=== PATIENT | male | born 1990 | race Caucasian/White ===

== ENCOUNTER 2023-06-29 22:26 | Emergency (ER) | payer OTHER, SELFPAY ==
--- NOTE | 2023-06-29 | ECG_ITS ---
Test Reason : CP Blood Pressure : / mmHG Vent. Rate : 077 BPM Atrial Rate : 077 BPM P-R Int : 142 ms QRS Dur : 100 ms QT Int : 374 ms P-R-T Axes : 017 -04 007 degrees QTc Int : 423 ms Normal sinus rhythm Normal ECG No previous ECGs available Referred By: Generic ED Physician Electronically Signed By:GUY DAS
--- NOTE | ~2023-06-29 | CT_ITS ---
EXAMINATION: CT ABDOMEN AND PELVIS WITH CONTRAST CLINICAL INFORMATION: Rectal bleeding. COMPARISON: None available. TECHNIQUE: Multidetector volumetric images were obtained from the superior aspect of the liver through the pubic symphysis following administration 85 mL of Omnipaque 350 intravenous contrast. Sagittal and coronal reformatted images were obtained on the technologist's workstation. Oral contrast: No This CT examination was performed using dose optimization techniques as appropriate, variously including the following: *Automated exposure control *Adjustment of mA and/or kV according to patient size (this includes techniques or standardized protocols for targeted exams where dose is matched to indication/reason for exam; i.e. extremities or head) *Use of iterative reconstruction technique DLP: 695 mGy-cm FINDINGS: LUNG BASES: The visualized lung bases are unremarkable. LIVER, GALLBLADDER, AND BILIARY TREE: The liver is normal in size, shape, and attenuation. No focal hepatic lesion or biliary ductal dilatation is present. The gallbladder is unremarkable with no evidence of radiopaque gallstones, gallbladder wall thickening, or obvious pericholecystic inflammatory changes. PANCREAS: Unremarkable. SPLEEN: Unremarkable. ADRENAL GLANDS: Unremarkable. KIDNEYS AND URETERS: The kidneys are normal in size, shape, and attenuation. No hydronephrosis, hydroureter, or calculi seen. No perinephric stranding. BLADDER: Unremarkable. GASTROINTESTINAL TRACT: The small and large bowel are unremarkable. The appendix is unremarkable. ABDOMINAL WALL: No significant hernia is appreciated. LYMPH NODES: Normal. VASCULAR: Unremarkable. PELVIC VISCERA: Unremarkable. OSSEOUS STRUCTURES: Unremarkable. CT/CT abdomen pelvis w IV con IMPRESSION: No acute intra-abdominal process. Fleischner guidelines were followed.
[2023-06-29 22:48] VITALS: BP 152/99; PULSE 88; RESP 18; TEMP 36.6; O2SAT 99; BMI 33.2
--- OUTSIDE RECORDS SUMMARY | 2023-06-29 23:33 | XMS_ITS | Continuity of Care Document ---
Author Name Unknown Organization [facility] ter Address [address] [place] [id number] Care Team Providers Care Trailer Technician Name Role Phone Not on Staff, PCP Primary Care Physician Unavail able [place] [facility] [place]/[address] [address]- Discharge Disposition: A-D/C Home Attending Physician: Gita Bliss MD Admitting Physician: Gita Bliss MD Referring Physician: Not on Staff, Referring MD Allergies, Adverse Reactions, Alerts Substance Reaction Severity Status NKA Active Immunizations Given and Recorded Vaccine Date Status Refusal Reason influenza virus vaccine, inactivated 1 10/06/14 Gi jose influenza virus vaccine, inactivated 2 06/09/09 Gi jose Meningococcal Polysaccharide Vaccine 3 11/02/10 Gi jose influ virus vac, H1N1, live(oldterm) 4 06/09/09 Gi jose tetanus/diphtheria/pertussis, acel(Tdap) 5 01/12/09 Given tetanus/diphtheria/pertussis, acel(Tdap) 03/06/08 Given 1Result Comment: [10/06/2014] ORDERED BY LEILANI OROZCO NP 2Admin Note: flu vaccine sanofi-pasteur VIS 12/2008 3Admin Note: vis 07/31 given 4Admin Note: VIS 12/2008 5Admin Note: BOOSTRIX VIS 06/10/08 GIVEN Medications Claritin 10 mg oral tablet 10 mg, 1, tablet, By Mouth, Daily, # 30 tablet, Refills 0, Tot. Refills 0, Maintenance, 01/06/18 3:53:08 EDT, Print Requisition Start Date: 01/06/18 Stop Date: 02/05/18 Status: Ordered famotidine 20 mg oral tablet 20 mg, 1, tablet, By Mouth, Daily, # 30 tablet, Refills 0, Tot. Refills 0, Maintenance, 08/05/18 1:17:54 EST, Print Requisition Start Date: 08/05/18 Status: Ordered Problem List Condition Effective Dates Status Health Status Inform ant Obesity (BMI 30-39.9)(Confirmed) Active Tobacco use(Confirmed) Active Vital Signs Most recent to oldest [Reference Range]: 1 2 3 Height 173 cm (09/19/20 9:46 PM) 173 cm (09/19/20 7:51 PM) 173 cm (09/19/20 6:27 PM) Weight 117.1 kg (09/19/20 9:46 PM) 117.1 kg (09/19/20 7:51 PM) 117.1 kg (09/19/20 6:27 PM) Oxygen Saturation [94-100 %] 100 % (09/19/20 9:46 PM) 99 % (09/19/20 7:51 PM) 100 % (09/19/20 6:27 PM) Pulse Rate [55-90 bpm] 80 bpm (09/19/20 9:46 PM) 84 bpm (09/19/20 7:51 PM) 96 bpm *H* (09/19/20 6:27 PM) Body Mass Index [18.5-24.99] 39.13 *>HHI* (09/19/20 9:46 PM) 39.13 *>HHI* (09/19/20 7:51 PM) 39.13 *>HHI* (09/19/20 6:27 PM) Blood Pressure [90-138/55-84 mm Hg] 146/97mm Hg *H* (09/19/20 9:46 PM) 171/105mm Hg *H* (09/19/20 7:51 PM) 159/95mm Hg *H* (09/19/20 6:27 PM) Respiratory Rate [16-30 br/min] 17 br/min (09/19/20 9:46 PM) 17 br/min (09/19/20 7:51 PM) 16 br/min (09/19/20 6:27 PM) Temperature [96.8-100.4 DegF] 98.4 DegF (09/19/20 6:27 PM) Mode of Delivery (Oxygen) Room air (09/19/20 9:46 PM) Room air (09/19/20 7:51 PM) Room air (09/19/20 6:27 PM) Blood pressure sites Arm, right (09/19/20 9:46 PM) Arm, right (09/19/20 7:51 PM) Arm, right (09/19/20 6:27 PM) Temperature Route Oral (09/19/20 6:27 PM) Dry Weight 117.1 kg (09/19/20 9:46 PM) 117.1 kg (09/19/20 7:51 PM) 117.1 kg (09/19/20 6:27 PM) Weight Obtained Via Standing scale (09/19/20 6:27 PM) Dry Weight Obtained Via Standing scale (09/19/20 6:27 PM) Social History Social History Type Response Smoking Status Current every day shawna galarza; Type: Cigarettes entered on: 10/06/14 Sex Male
[2023-06-29 23:34] LABS: Basophils Percent Auto 0.4 % (0-2); Eosinophils Absolute Auto 0.1 X10*3/uL (0.0-0.4); Hematocrit 46.9 % (42.0-52.0); Hemoglobin 15.6 g/dl (14.0-18.0); Imm Gran Abs Auto 0.06 X10*3/uL (0.00-0.03); Imm Gran Pct Auto 0.5 % (0.0-0.4); Lymphocytes Absolute Auto 3.2 X10*3/uL (1.2-4.9); Lymphocytes Percent Auto 28.6 % (20-40); MANUAL DIFF FLAG NO; Mean Corpuscular HGB Conc 33.3 g/dl (31.0-36.0); Mean Corpuscular Hemoglobin 30.9 pg (27.0-33.0); Mean Corpuscular Volume 92.9 fL (80.0-98.0); Mean Platelet Volume 9.4 fL (9.4-12.4); Monocytes Absolute Auto 0.8 X10*3/uL (0.1-1.2); Monocytes Percent Auto 7.4 % (2-11); Neutrophils Percent Auto 62.1 % (45-73); Platelet Count 350 X10*3/uL (160-400); Red Blood Count 5.05 X10*6/uL (4.60-5.80); Red Cell Distribution Width 12.5 % (11.0-16.0); White Blood Count 11.2 X10*3/uL (4.8-10.8)
[2023-06-29 23:40] LABS: Appearance Urine Clear; Color Urine Yellow; Glucose Urine UA Negative (Negative); Leukocyte Esterase Urine Negative (Negative); Nitrite Urine Negative (Negative); PH 5.5 (5.0-9.0); Specific Gravity - Urine 1.025 (1.005-1.025); Urine Blood Negative (Negative); Urine Ketones Negative (Negative); Urine Protein Negative (Neg-Trace)
[2023-06-29 23:42] LABS: Bacteria Urine None Seen (None Seen); Hyaline Casts Urine 0-2 /LPF (0-2); RBC Urine 0-2 /HPF (0-2); Squamous Epithelial Cell Urine 0-2 /HPF (0-2); WBC Urine 0-5 /HPF (0-5)
[2023-06-29 23:48] LABS: Alanine Aminotransferase 53 U/L (0-40); Albumin Level 4.3 g/dL (3.5-5.0); Alkaline Phosphatase 80 U/L (39-117); Anion Gap 15 (12-20); Aspartate Amino Transferase 49 U/L (5-37); Bilirubin Total 1.2 mg/dL (0.0-1.0); Blood Urea Nitrogen 17 mg/dL (9-16); Calcium 9.2 mg/dL (8.4-10.2); Carbon Dioxide 28 mmol/L (22-29); Chloride 103 mmol/L (96-108); Creatinine Clr Calc Pharmacy 145.7; Estimated Glomerular Filt Rate > 60; Glucose Random 91 mg/dL (60-115); Lipase 18 U/L (8-78); Potassium 3.7 mmol/L (3.3-5.1); Sodium 142 mmol/L (135-145); Total Protein 7.4 g/dL (6.5-8.0)
[2023-06-30 01:31] VITALS: BP 196/103; PULSE 78; RESP 20; TEMP 36.6; O2SAT 100
--- NOTE | 2023-06-30 03:02 | ED.ABDPAIN ---
HPI - Abdominal Pain General Chief Complaint: Abdominal Pain Stated Complaint: vomiting,[place],bloody stool,chest pain middle Time Seen by Provider: 06/30/23 02:50 Source: patient and family Mode of arrival: ambulatory Limitations: no limitations History of Present Illness HPI narrative: Patient comes to the emergency room accompanied by his . Patient complaining of diarrhea for approximately 3 weeks. Patient complaining of nausea, no vomiting, no fever chills, occasional abdominal cramping and discomfort but no significant pain. No hematuria. Patient states that he was managing the diarrhea at home with [id number] medications such as Pepto-Bismol, loperamide but nothing has worked. Patient now has bloody diarrhea. Related Data Previous Rx's Medication Instructions Recorded diphenoxylate-atropine 2.5 1 tab PO BID PRN diarrhea #10 tabs 06/30/23 mg-0.025 mg tablet (Lomotil) levofloxacin 500 mg tablet 500 mg PO DAILY #9 tabs 06/30/23 metronidazole 500 mg tablet 500 mg PO BID #19 tabs 06/30/23 Allergies Allergy/AdvReac Type Severity Reaction Status Date / Time No Known Allergies Allergy Verified 06/29/23 22:47 Review of Systems Review of Systems Constitutional : No Weight loss, No Fever, No Chills, No Night Sweats, No Fatigue, No Malaise ENT/Mouth : No Hearing loss, No Ear Pain, No Nasal Congestion, No Sinus Pain, No Hoarseness, No sore throat, No Rhinorrhea, No Swallowing Difficulty Eyes: No Eye Pain, No Swelling, No Redness, No Foreign Body, No Discharge, No Vision Changes Cardiovascular : No Chest Pain, No SOB, No Dyspnea on Exertion, No Orthopnea, No Edema, No Palpitations Respiratory : No Cough, No Sputum, No Wheezing, No Smoke Exposure, No Dyspnea Gastrointestinal : Ring of nausea, no vomiting, complaining of diarrhea for 3 weeks, now bloody. Complaining of intermittent diffuse abdominal cramping Genitourinary : no irregular bleeding, No Dysuria, No Urinary Frequency, No Hematuria, No Urinary Incontinence, No Urgency, No Flank Pain, No Urinary Flow Changes, No Hesitancy Musculoskeletal : No joint pain, No Myalgias, No Joint Swelling Skin : No Skin Lesions, No rash Neuro : No Weakness, No Numbness, No Paresthesias, No Loss of Consciousness, No Dizziness, No Headache Psych : No Anxiety/Panic, No Depression, No SI/HI/AH/VH, No Social Issues, Heme/Lymph: No Bruising, No Bleeding,No Lymphadenopathy Endocrine : No Polyuria, No Polydipsia, No Temperature Intolerance PMFSH Social History Social History Smoked in Last 30 Days: No Use of substances other than those prescribed or required for medical reasons: No Advance Directives: No Advance Directives Information Provided: No Physical Exam ED Vital Signs: Vital Signs - 24 hr 06/29/23 22:48 06/30/23 01:31 06/30/23 04:50 Temperature 98 F 97.9 F Pulse Rate 88 78 76 Respiratory Rate 18 20 18 Blood Pressure 152/99 H 196/103 H 146/96 H Pulse Oximetry 99 100 99 Oxygen Delivery Method Room Air Room Air Room Air BMI result Body Mass Index 33.2 Const Other: Appearance: Alert. Oriented X3. No acute distress. Well-appearing Eyes: Pupils equal, round and reactive to light. ENT: Pharynx normal. Neck: Normal inspection. Neck supple. No lymph nodes noted. No crepitus CVS: Normal heart rate and rhythm. Pulses normal. Normal S1 and S2 Respiratory: No respiratory distress. Breath sounds normal. No Wheezing. No rales Abdomen: Soft and nontender. No rigidity. No distention. No obvious anal fissures, digital rectal exam shows maroon color stool without any obvious blood Skin: Skin warm and dry. Normal skin color. Normal skin turgor. Extremities: No lower extremity edema. No Lacerations. No Rash Neuro: Oriented X 3. No motor deficit. No sensory deficit. Moving all extremities. No slurred speech. CN 2 through 12 grossly intact Psych: calm, cooperative, normal affect Medical Decision Making Medical Decision Making MDM Narrative: -my interpretation of labs: White blood cell count slightly elevated 11.2, likely reactive leukocytosis secondary to diarrhea. Despite patient having a large amount of diarrhea for some many weeks, electrolytes look normal. Patient's LFTs are a bit bumped, likely secondary to fatty liver which was discussed with the patient. Lipase normal -CT scan of the abdomen and pelvis pending. -my interpretation of CT scan: No obvious abnormality. -I discussed the CT scan results with the patient. Given that the patient has been having diarrhea for quite a few days, we will go ahead and treat him with antibiotics. -since patient has been having diarrhea with blood, patient likely has colitis. Patient will be treated with antibiotics as mentioned above. Levaquin, metronidazole. Differential Diagnosis Differential Diagnoses: The differential diagnosis associated with the presentation includes (Viral gastritis, diverticulitis, diverticulosis, internal hemorrhoid) Admission/Observation Consideration of admission/observation: Escalation of care including admission/observation considered (Given the patient's presentation, admission was considered) Lab Data MDM Lab Attestation statement: I reviewed the patient's lab results. 06/29/23 23:27 06/29/23 23:27 Labs: Lab Results 06/29/23 06/29/23 06/30/23 Range/Units 23:27 23:34 03:01 WBC 11.2 H (4.8-10.8) X10*3/uL RBC 5.05 (4.60-5.80) X10*6/uL Hgb 15.6 (14.0-18.0) g/dl Hct 46.9 (42.0-52.0) % MCV 92.9 (80.0-98.0) fL MCH 30.9 (27.0-33.0) pg MCHC 33.3 (31.0-36.0) g/dl RDW 12.5 (11.0-16.0) % Plt Count 350 (160-400) X10*3/uL MPV 9.4 (9.4-12.4) fL Immature Gran % (Auto) 0.5 H (0.0-0.4) % Neut % (Auto) 62.1 (45-73) % Lymph % (Auto) 28.6 (20-40) % [place] % (Auto) 7.4 (2-11) % Eos % (Auto) 1.0 (0-4) % Baso % (Auto) 0.4 (0-2) % Lymph # (Auto) 3.2 (1.2-4.9) X10*3/uL [place] # (Auto) 0.8 (0.1-1.2) X10*3/uL Eos # (Auto) 0.1 (0.0-0.4) X10*3/uL Baso # (Auto) 0.0 (0.0-0.2) X10*3/uL Abs Immat Gran (auto) 0.06 H (0.00-0.03) X10*3/uL Absolute Neuts (auto) 7.0 (2.0-8.3) x10*3/uL Absolute Nucleated RBC 0.000 (0.0-0.012) X10*3/uL Nucleated RBC % (auto) 0.0 (0.0-0.2) /100WBC Sodium 142 (135-145) mmol/L Potassium 3.7 (3.3-5.1) mmol/L Chloride 103 (96-108) mmol/L Carbon Dioxide 28 (22-29) mmol/L Anion Gap 15 (12-20) BUN 17 H (9-16) mg/dL Creatinine 0.90 (0.5-1.4) mg/dL Estim Creat Clear Calc 145.7 Estimated GFR > 60 Random Glucose 91 (60-115) mg/dL Calcium 9.2 (8.4-10.2) mg/dL Total Bilirubin 1.2 H (0.0-1.0) mg/dL AST 49 H (5-37) U/L ALT 53 H (0-40) U/L Alkaline Phosphatase 80 (39-117) U/L Total Protein 7.4 (6.5-8.0) g/dL Albumin 4.3 (3.5-5.0) g/dL Lipase 18 (8-78) U/L Urine Color Yellow Urine Appearance Clear Urine pH 5.5 (5.0-9.0) Ur Specific [place] 1.025 (1.005-1.025) Urine Protein Negative (Neg-Trace) mg/dL Urine Glucose (UA) Negative (Negative) mg/dL Urine Ketones Negative (Negative) mg/dL Urine Blood Negative (Negative) Urine Nitrite Negative (Negative) Ur Leukocyte Esterase Negative (Negative) Urine RBC 0-2 (0-2) /HPF Urine WBC 0-5 (0-5) /HPF Ur Squamous Epith Cells 0-2 (0-2) /HPF Urine Bacteria None Seen (None Seen) Hyaline Casts 0-2 (0-2) /LPF Stool Occult Blood POSITIVE (NEGATIVE) Independent Interpretation I performed an independent interpretation of an: CT Scan Radiology Impression Discussion of test interpretation with radiology: I have reviewed the radiologist's reading. Radiologist Impression: FINDINGS: LUNG BASES: Unremarkable. LIVER, GALLBLADDER, BILIARY TREE: There is a stable cyst at the dome of the liver. There is no intrahepatic biliary duct dilatation. Numerous gallstones are noted. PANCREAS: Normal; no mass or surrounding fluid. SPLEEN: Normal size. No focal lesion. ADRENAL GLANDS: Normal; no mass. KIDNEYS AND URETERS: The kidneys are normal in size, shape, and attenuation. No hydronephrosis, hydroureter, or calculi seen. There are scattered renal hypodensities with some hyperdensities within the collecting system possibly related to contrast administration. BLADDER: No focal mass or wall thickening seen. No bladder calculi. GASTROINTESTINAL TRACT: The appendix is visualized and is within normal limits. There is thickening of the transverse and descending colon. There are diverticula of the descending and the sigmoid colon without diverticulitis. A gastric band is noted. The visualized esophagus is thickened and distended. There is no contrast extravasation to suggest active GI bleeding. ABDOMINAL WALL: No hernia seen. LYMPHOVASCULAR STRUCTURES: There is mild atherosclerotic plaque of the abdominal aorta. There is no significant lymph node enlargement. PELVIC VISCERA: Unremarkable. OSSEOUS STRUCTURES: There is mild diffuse thoracolumbar discogenic change. CT/CT gi bleed abd pel wo/w IVcon IMPRESSION: Thickening of the transverse and descending colon consistent with colitis of uncertain etiology. Diverticula of the descending and the sigmoid colon without diverticulitis. Cholelithiasis. Gastric band in place. There visualized esophagus is distended and thickened possibly esophagitis. Fleischner guidelines were followed. Independent Historian Clinical information obtained from an independent historian. History obtained from or confirmed by: Spouse Medications Administered Discontinued Medications Generic Name Dose Route Start Last Admin Trade Name Freq PRN Reason Stop Dose Admin Iohexol 85 ml 06/30/23 03:25 06/30/23 03:26 Iohexol 350 Mg/Ml 100 Ml Infus..Btl IV 06/30/23 03:26 85 ml ONCE ONE Administration Critical Care Time Critical Care Time Critical Care Time: Yes Total Critical Care Time: 60 Attestation: I have personally provided critical care time. Time includes review of lab data, radiology results, discussion with consultants, and monitoring for potential decompensation. Intervention performed as documented. Discharge Plan Discharge Clinical Impression: Rectal bleed, Diarrhea Patient Disposition: Home, Self-Care Instructions: Acute Diarrhea (ED) Additional Instructions: Please follow-up with your primary care physician tomorrow. If you have any worsening or new symptoms, please return to the emergency room or call 911 Prescriptions: New levofloxacin 500 mg tablet 500 mg PO DAILY Qty: 9 0RF metronidazole 500 mg tablet 500 mg PO BID Qty: 19 0RF diphenoxylate-atropine [Lomotil] 2.5-0.025 mg tablet 1 tab PO BID PRN (Reason: diarrhea) Qty: 10 0RF Rx Instructions: Keep away from children
[2023-06-30 03:18] LABS: OBS Int Ctl Valid YES; OBS1 POSITIVE (NEGATIVE)
[2023-06-30] MEDS: iohexoL 350 MG/ML 100 ML INFUS..BTL 85 ML IV (03:26)
[2023-06-30 04:50] VITALS: BP 146/96; PULSE 76; RESP 18; O2SAT 99
[2023-06-30] MEDS: metroNIDAZOLE 500 MG TABLET PO (05:43)
[2023-06-30] MEDS: levoFLOXacin 500 MG TABLET PO (05:43)
== END 2023-06-30 05:50 | disposition home or self-care (01) ==
PROVIDERS: Emergency Provider Emergency Medicine
DX: K62.5 Hemorrhage of anus and rectum (principal); R19.7 Diarrhea, unspecified
CPT/HCPCS: 36415; 74177; 80053; 81001; 82272; 83690; 85025; 93005; 99284; Q9967

== ENCOUNTER → 2023-06-29 23:22 | Outpatient (BNV) | payer SELFPAY | PROVIDERS: Emergency Provider Emergency Medicine; Visit Provider Internal Medicine | DX: R07.9 Chest pain, unspecified (principal) | CPT/HCPCS: 93010 ==

== ENCOUNTER → 2024-10-02 10:16 | Outpatient (BNVA) | payer SELFPAY | PROVIDERS: Visit Provider Physician Assistant Medical | DX: Z02.79 Encounter for issue of other medical certificate (principal) ==